=== PATIENT | female | born 1990 | race Caucasian/White ===

== ENCOUNTER 2019-10-19 14:22 | Emergency (ER) | payer MEDICAID ==
[~2019-10-19] VITALS: Ht 160 cm; Wt 68.0 kg
[2019-10-19 14:25] VITALS: BP 133/52
--- NOTE | 2019-10-19 14:30 | NUR ---
PT AMBULATED TO RESTROOM TO PROVIDE URINE SAMPLE
--- NOTE | 2019-10-19 14:40 | NUR ---
29/F C/O VAGINAL BLEEDING X5 DAYS BECOMING MORE HEAVY TODAY WITH LARGE BLOOD CLOTS. USING 1-2 PADS/HR. ULTRASOUND X3 WEEKS AGO--EMPTY GESTATIONAL SAC. REPORTS INTERMITTENT CRAMPY B/L PELVIC PAIN. NO PAIN AT THIS TIME. PT TAKING IBUPROFEN 800MG, NO RELIEF. DENIES FEVER, N/V. STATES MINIMAL DIZZINESS. ALLERGIES: NKA. MED HX: NONE
[2019-10-19] MEDS ORDERED: KETOROLAC 30 MG/ML VIAL IVP ONE (14:45)
[2019-10-19] MEDS ORDERED: NACL 0.9% 1,000 ML IV ONE (14:45)
--- NOTE | 2019-10-19 14:58 | NUR ---
ULTRASOUND AT BEDSIDE
[2019-10-19 15:06] LABS: BASOPHILS # (AUTO) 0.1 K/uL (0.00-0.22); BASOPHILS % (AUTO) 0.7 % (0.0-2.0); EOSINOPHILS # (AUTO) 0.1 K/uL (0-0.4); EOSINOPHILS % (AUTO) 1.3 % (0.0-4.0); HEMATOCRIT 35.9 % (36-48); HEMOGLOBIN 12.1 g/dL (12.0-16.0); LYMPHOCYTES # (AUTO) 1.1 K/uL (2.5-16.5); MEAN CORPUSCULAR HEMOGLOBIN 31 pg (27-31); MEAN CORPUSCULAR HGB CONC 34 g/dL (33-37); MEAN CORPUSCULAR VOLUME 90.3 fL (80-94); MONOCYTES # (AUTO) 0.7 K/uL (0.8-1.0); MONOCYTES % (AUTO) 9.3 % (1.7-9.3); NEUTROPHILS # (AUTO) 5.1 K/uL (1.8-7.7); NEUTROPHILS % (AUTO) 72.7 % (42.2-75.2); PLATELET COUNT (AUTO) 208 K/uL (140-450); RED BLOOD CELL COUNT(AUTO) 3.98 MIL/uL (4.20-5.40); RED CELL DISTRIBUTION WIDTH 14.7 % (11.6-13.7)
--- NOTE | 2019-10-19 15:13 | NUR ---
WILL START IV AND ADMINISTER ORDERED MEDS WHEN US COMPLETE.
--- NOTE | 2019-10-19 15:33 | NUR ---
IDA US TECH AT BEDSIDE FOR ORDERED ULTRASOUND.
[2019-10-19 15:38] LABS: ALBUMIN 3.9 g/dL (3.4-5.0); ANION GAP 18.1 (8-16); CARBON DIOXIDE 23.5 mmol/L (21-32); CREATININE 0.6 mg/dL (0.6-1.3); POTASSIUM 3.6 mmol/L (3.5-5.1); TOTAL BILIRUBIN 0.7 mg/dL (0.0-1.0)
--- NOTE | 2019-10-19 17:16 | NUR ---
Patient discharged with v/s stable. Written and verbal after care instructions given and explained. Patient alert, oriented and verbalized understanding of instructions. Ambulatory with steady gait. All questions addressed prior to discharge. ID band removed. Patient advised to follow up with PMD. Rx of Naprosyn given. Patient educated on indication of medication including possible reaction and side effects BY DR. DAVIS. Opportunity to ask questions provided and answered. PT D/C BY DR. DAVIS. LT WRIST 22G REMOVED WITH MINIMAL BLOOD LOSS AND LUMEN COMPLETELY INTACT.
[2019-10-19 17:35] VITALS: BP 124/65
== END 2019-10-19 17:20 | disposition home or self-care (01) ==
LOC: MED 14:22
DX: O03.9 Complete or unspecified spontaneous abortion without complication (principal); O20.9 Hemorrhage in early pregnancy, unspecified
CPT/HCPCS: 36415; 76801; 80053; 81002; 81025; 84702; 85025; 96374; 99284; J1885; J7030; Q0092